=== PATIENT | female | born 1995 | race Caucasian/White ===

== ENCOUNTER 2017-09-17 08:44 | Emergency (ER) | payer OTHER ==
[2017-09-17 10:22] LABS: ADD MAN DIFF? NO
[2017-09-17] MEDS: METOCLOPRAMIDE 10 MG INJ IV (10:22)
[2017-09-17] MEDS: morphine 4 MG/ML VIAL IV (10:22)
[2017-09-17] MEDS: SOD CHLORIDE 0.9% 1,000 ML IV (10:24)
[2017-09-17 10:26] LABS: BASOPHILS % 0.1 % (0.0-2.0); HEMATOCRIT 39.8 % (37.0-47.0); HEMOGLOBIN 13.7 g/dl (12.0-16.0); LYMPHOCYTES # 0.7 10^3/ul (0.8-2.9); LYMPHOCYTES % 6.6 % (15.0-51.0); MEAN CORPUSCULAR HEMOGLOBIN 29.9 pg (29.0-33.0); MEAN CORPUSCULAR HGB CONC 34.4 g/dl (32.0-37.0); MEAN CORPUSCULAR VOLUME 86.9 fl (82.0-101.0); MEAN PLATELET VOLUME 11.7 fl (7.4-10.4); MONOCYTE # 0.1 10^3/ul (0.3-0.9); MONOCYTES % 1.2 % (0.0-11.0); NEUTROPHIL # 9.2 10^3/ul (1.6-7.5); NEUTROPHILS % 91.7 % (39.0-77.0); PLATELET COUNT 279 10^3/UL (140-415); RED BLOOD COUNT 4.58 10^6/ul (4.20-5.40); RED CELL DISTRIBUTION WIDTH 13.2 % (11.5-14.5)
[2017-09-17 10:33] LABS: ADD UMIC NO; UR ASCORBIC ACID 40 mg/dL (NEGATIVE); UR BACTERIA FEW /HPF (NONE SEEN); UR BILIRUBIN (Dip) NEGATIVE (NEGATIVE); UR BLOOD (Dip) NEGATIVE (NEGATIVE); UR CLARITY SLIGHTLY CLOUDY (CLEAR); UR COLOR YELLOW (YELLOW); UR GLUCOSE (Dip) NEGATIVE (NEGATIVE); UR KETONES (Dip) 2+ mg/dL (NEGATIVE); UR LEUKOCYTE ESTERASE (Dip) NEGATIVE Leu/ul (NEGATIVE); UR MUCUS MODERATE /HPF (NONE SEEN); UR NITRITE (Dip) NEGATIVE (NEGATIVE); UR RBC 2 /HPF (0-5); UR SPECIFIC GRAVITY (Dip) 1.027 (1.003-1.030); UR SQUAMOUS EPITHELIAL CELL FEW /HPF (FEW); UR TOTAL PROTEIN (Dip) NEGATIVE (NEGATIVE); UR UROBILINOGEN (Dip) NEGATIVE (NEGATIVE); UR WBC 5 /HPF (0-5)
[2017-09-17 10:51] LABS: ALANINE AMINOTRANSFERASE 30 IU/L (13-69); ALBUMIN 5.3 g/dl (3.3-4.9); ALBUMIN/GLOBULIN RATIO 1.55; ALKALINE PHOSPHATASE 107 IU/L (42-121); ANION GAP 21 (8-16); ASPARTATE AMINO TRANSFERASE 28 IU/L (15-46); BILIRUBIN,INDIRECT 0.4 mg/dl (0-1.1); BILIRUBIN,TOTAL 0.4 mg/dl (0.2-1.3); BLOOD UREA NITROGEN 10 mg/dl (7-20); CALCIUM 9.6 mg/dl (8.4-10.2); CARBON DIOXIDE 20 mmol/L (21-31); CHLORIDE 104 mmol/L (97-110); CREATININE 0.72 mg/dl (0.44-1.00); GLUCOSE 128 mg/dl (70-220); LIPASE 74 U/L (23-300); POTASSIUM 3.4 mmol/L (3.5-5.1); SODIUM 142 mmol/L (135-144); TOTAL PROTEIN 8.7 g/dl (6.1-8.1)
[2017-09-17 10:56] LABS: INR 0.95; PROTIME 12.8 Sec (11.9-14.9)
[2017-09-17] MEDS: LIDOCAINE/MYLANTA 40 ML BTL PO (11:49)
[2017-09-17] MEDS: ONDANSETRON (ODT) 4 MG TAB ODT (12:06)
[2017-09-17] MEDS: KETOROLAC 15 MG INJ IM (13:31)
== END 2017-09-17 11:50 | disposition home or self-care (01) ==
LOC: FTE 08:44
DX: K29.70 Gastritis, unspecified, without bleeding (principal); Z76.5 Malingerer [conscious simulation]
CPT/HCPCS: 74176; 80053; 81001; 81003; 83690; 85025; 85610; 85730; 96372; 96374; 96375; 99285-25